=== PATIENT | male | born 1940 | race Caucasian/White ===

== ENCOUNTER 2019-02-03 05:41 | Inpatient (IN) | payer OTHER, BC ==
[2019-01-27 10:37] LABS: ABSOLUTE NEUTROPHILS 4.9 thou/uL (1.4-8.2); EOSINOPHILS 3.5 % (0.0-3.0); HEMATOCRIT 45.8 % (42.0-52.0); HEMOGLOBIN 15.3 gm/dL (14.0-18.0); LYMPHOCYTES 20.6 % (24.0-44.0); MCH 30.5 pg (26.0-34.0); MCHC 33.4 g/dL (28.0-37.0); MCV 91.3 fL (80.0-100.0); MONOCYTES 8.7 % (1.0-8.0); PLATELET COUNT 280 thou/uL (150-400); POLYS 66.2 % (36.0-66.0); RBC 5.01 mil/uL (4.50-6.00); WBC 7.4 thou/uL (4.0-11.0)
[2019-01-27 10:38] LABS: URINE BILIRUBIN NEGATIVE (Negative); URINE BLOOD NEGATIVE (Negative); URINE CLARITY CLEAR; URINE COLOR YELLOW; URINE GLUCOSE-RANDOM* NEGATIVE (Negative); URINE KETONES NEGATIVE (Negative); URINE LEUKOCYTES TRACE (Negative); URINE NITRITE NEGATIVE (Negative); URINE PROTEIN (DIPSTICK) NEGATIVE (Negative); URINE UROBILINOGEN 0.2 E.U./dl (0.2-1.0)
[2019-01-27 10:49] LABS: APTT 26.6 Seconds (24.5-32.8); PROTIME 10.9 Seconds (9.3-11.4)
[2019-01-27 10:52] LABS: ALBUMIN 3.9 g/dL (3.4-5.0); CALCIUM 9.1 mg/dL (8.5-10.1); CREATININE 1.1 mg/dL (0.7-1.3); POTASSIUM 4.2 mmol/L (3.5-5.1); TOTAL BILIRUBIN 0.8 mg/dL (<0.1-1.0); TOTAL PROTEIN 6.5 g/dL (6.4-8.2)
--- NOTE | 2019-01-27 13:59 | EKG ---
[place] [address] [place] [address] ELECTROCARDIOGRAM REPORT Name: SRIKANTH MCCARTHY Room #: [facility]#: [id number] Admission: Attend Phys: Han Bird MD Discharge: Date of : 40 Report #: [id number] THIS REPORT FOR: //name// [facility] Test Date: 2019-01-27 Test Time: 10:37:26 Pat Name: SRIKANTH MCCARTHY Department: Room: Gender: Internal Affairs Investigator: marissa : 1940 Requested By: Han Bird Order Number: [id number] MD: Rickey Greer Measurements Intervals [place] Rate: 81 P: 50 WV: 237 QRS: 33 QRSD: 167 T: -3 QT: 388 QTc: 451 Interpretive Statements Sinus rhythm Supraventricular bigeminy Prolonged WV interval Right bundle branch block No previous ECG available for comparison Electronically Signed On 01-27-2019 13:59:12 CDT by Rickey Greer [email or web address] <ELECTRONICALLY SIGNED> By: Rickey Greer MD 01/27/19 1359 1037 Jessica Greer MD /IRMA
[2019-02-03] VITALS (17 sets, daily range): BP systolic 103–141; BP diastolic 62–83
[~2019-02-03] VITALS: Ht 182.9 cm; Wt 88.7 kg
[~2019-02-03 05:41] MED LIST: ASA81BEC PO; LIPITOR 20 MG T20 M1 PO; MICROZIDE12.5 MG PO; OMEPRAZOLE 20 M20 M1 PO
[2019-02-03 13:30] LABS: ABSOLUTE NEUTROPHILS 12.6 thou/uL (1.4-8.2); BASOPHILS 0.2 % (0.0-2.0); HEMATOCRIT 44.1 % (42.0-52.0); HEMOGLOBIN 14.3 gm/dL (14.0-18.0); LYMPHOCYTES 3.8 % (24.0-44.0); MCH 29.9 pg (26.0-34.0); MCHC 32.4 g/dL (28.0-37.0); MCV 92.1 fL (80.0-100.0); MONOCYTES 3.5 % (1.0-8.0); PLATELET COUNT 256 thou/uL (150-400); POLYS 92.5 % (36.0-66.0); RBC 4.79 mil/uL (4.50-6.00); RDW 15.1 % (10.5-14.5); WBC 13.6 thou/uL (4.0-11.0)
[2019-02-03 13:38] LABS: CALCIUM 7.6 mg/dL (8.5-10.1); CREATININE 1.1 mg/dL (0.7-1.3); POTASSIUM 4.1 mmol/L (3.5-5.1)
--- NOTE | 2019-02-03 15:35 | NUR ---
PATIENT IN ICU FROM PACU AT 1415, DROWSY BUT EASILY AROUSABLE AND IS ORIENTED. HEALTH PROGRAM MANAGER FENTANYL INFUSING WITH BASAL. VITALS STABLE. A-LINE RT RADIAL, CHEST TUBE LEFT LATERAL CHEST TO -20SUCTION. DRESSING INTACT WITH AMIE VAC ON LEFT LATERAL CHEST. SPOUSE UPDATED AND ICU GUIDELINES AND PRIVACY CODE PROVIDED.
[2019-02-03 23:34] LABS: TSH 2.429 uIU/mL (0.358-3.740)
[2019-02-04] VITALS (23 sets, daily range): BP systolic 98–140; BP diastolic 53–83
[2019-02-04 05:15] LABS: HEMATOCRIT 42.8 % (42.0-52.0); HEMOGLOBIN 14.1 gm/dL (14.0-18.0); MCH 30.3 pg (26.0-34.0); MCHC 32.9 g/dL (28.0-37.0); RBC 4.66 mil/uL (4.50-6.00); RDW 15.3 % (10.5-14.5)
[2019-02-04 05:27] LABS: CALCIUM 8.1 mg/dL (8.5-10.1); POTASSIUM 4.2 mmol/L (3.5-5.1)
--- NOTE | 2019-02-04 15:24 | NUR ---
CM ASSESSMENT: CASE OPENED FOR DC PLANNING. CLINICAL INFO REVIEWED. PT WITH HX OF LEFT PLEURAL EFFUSION/EMPHYEMA AND NOW POD #1 LEFT THORACOTOMY WITH DECORTICATION. PT LIVES WITH SPOUSE IN HOUSE. BOTH ARE RETIRED. PT INDEPENDENT WITH ADLS, DRIVES SHARES IADLS WITH SPOUSE. HAS PCP AND PRESCRIPTION COVERAGE. THERAPY EVALS PENDING AND WILL FOLLOW TO ASSIST WITH COORDINATION OF ANY DC NEEDS. CURRENTLY HAD CHEST TUBE TO SUCTION.
--- NOTE | 2019-02-04 17:06 | PATH ---
[facility] [address] [address] PATHOLOGY RPT PROCEDURE Name: SRIKANTH MCCARTHY Ran Room #: 238-P [facility] IN M.R.#: [id number] Admission: 02/03/19 Date of : 40 Discharge: Report #: [id number] Path Case #: [id number] [facility] Accession Number: [id number] . 01 Material submitted: . lung - TISSUE LEFT PLEURAL PEEL. Modifiers: left . 01 Clinical history: . Pleural effusion . 02 Diagnosis: Pleural peel, left, decortication: - Moderate acute and chronic inflammation associated with congestion, focal giant cell reaction as well as reactive mesothelial hyperplasia. (IUV:dryland farmer; 02/04/2019) MBR 02/04/2019 1451 Local . 02 Electronically signed: . Sofia Epperson MD, Pathologist NPI- [id number] . 01 Gross description: . The specimen is received in formalin, labeled "Janessa, Srikanth, left pleural peel" and consists of multiple thin segments of pink-purple tissue measuring 4.5 x 3.4 x 0.5 cm in aggregate. The specimen is entirely submitted in A1-A2. (SDY; 02/03/2019) SYU/SYU 02/04/2019 1450 Local . 02 Pathologist provided ICD-10: R09.1 . 02 CPT . 203610 Specimen Comment: A courtesy copy of this report has been sent to [phone], [facility]-808 Specimen Comment: [id number] Specimen Comment: Report sent to / DR KING Performed at: [address], [place] [id number] MD Sin Fountain MD Phone: [phone] Performed at: [address] [id number] MD Sofia Epperson MD Phone: [phone]
[2019-02-04 23:07] LABS: GLYCOHEMOGLOBIN (HGB A1C) 5.6 % (4.8-5.6)
[2019-02-05] VITALS (29 sets, daily range): BP systolic 30–154; BP diastolic 15–84
--- NOTE | 2019-02-05 04:19 | NUR ---
ASSUMED CARE OF PATIENT AT 1900. VSS, AFEBRILE. UP TO CHAIR UNTIL READY FOR BED. STEADY ON FEET, RATES PAIN BETWEEN 1-2. AT 0400 BP DOWN TO 91/61, DR MALLORY NOTIFIED. TELEPHONE ORDER TO DC FOOD SERVICES DIRECTOR PUMP. PATIENT UPDATED ABOUT FOOD SERVICES DIRECTOR BEING STOPPED AND EDUCATED ON ALTERNATIVES SUCH HYDROCODONE. AGREEABLE TO PAIN MANAGEMENT OPTIONS. RESTING COMFORTABLY. WILL CONTINUE TO MONITOR.
--- NOTE | 2019-02-05 15:34 | NUR ---
PT AMBULATED 350 FT SBA NO DEVICE AND THERAPY RECOMMENDATION IS HOME SELF CARE AT [place]. CM TO FOLLOW.
[2019-02-05] MEDS ORDERED: FLOMAX0.4 MG PO (18:58)
--- NOTE | 2019-02-05 23:35 | NUR ---
REPORT GIVEN TO NANCI KENNY AT 2200. PT. TRANSFERRED TO CCU WITH ALL BELONGINGS. NO COMPLIACTIONS AT THIS TIME.
[2019-02-06 05:05] LABS: ABSOLUTE NEUTROPHILS 6.5 thou/uL (1.4-8.2); BASOPHILS 0.3 % (0.0-2.0); EOSINOPHILS 7.4 % (0.0-3.0); HEMATOCRIT 42.7 % (42.0-52.0); HEMOGLOBIN 13.9 gm/dL (14.0-18.0); LYMPHOCYTES 9.4 % (24.0-44.0); MCH 30.3 pg (26.0-34.0); MCHC 32.5 g/dL (28.0-37.0); MCV 93.4 fL (80.0-100.0); MONOCYTES 9.7 % (1.0-8.0); PLATELET COUNT 250 thou/uL (150-400); POLYS 73.2 % (36.0-66.0); RBC 4.57 mil/uL (4.50-6.00); RDW 15.4 % (10.5-14.5); WBC 8.9 thou/uL (4.0-11.0)
[2019-02-06 05:27] VITALS: BP 137/77
[2019-02-06 05:27] LABS: CALCIUM 8.4 mg/dL (8.5-10.1); CREATININE 0.9 mg/dL (0.7-1.3); MAGNESIUM 1.9 mg/dL (1.8-2.4); POTASSIUM 3.6 mmol/L (3.5-5.1)
--- NOTE | 2019-02-06 05:27 | NUR ---
PT ARRIVED UNIT FROM ICU AT ABOUT 2200. PT A/OX4, VITAL SIGNS STABLE, ASSESSMENT CHARTED. NO COMPLAINTS OF PAIN, NO COMPLAINTS OF SOB. PT CALLS APPROPRIATELY. PT EDUCATED ON FALL PREVENTION. CALLS APPROPRIATELY. PT RESTED WELL FOR THE REST OF THE NIGHT. PROGRESSING TOWARD PLAN OF CARE. WILL CONTINUE TO MONITOR.
[2019-02-06 08:30] VITALS: BP 131/75
[2019-02-06] MEDS ORDERED: HYDROCODON-ACE1 EAC7 PO (10:16)
[2019-02-06 12:18] VITALS: BP 131/75
[2019-02-06 12:22] VITALS: BP 131/75
--- NOTE | 2019-02-10 13:07 | O ---
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 OPERATION: Bronchoscopy, left video-assisted thoracoscopy, left thoracotomy with decortication. SURGEON: Han Bird MD ANESTHESIA: General. INDICATIONS: The patient is a 78-year-old with a history of pneumonia. The patient and state that this was untreated for several months, and as a result, the patient developed a chronic left pleural effusion. This has been drained several times, but the left lower lobe principally is trapped. FINDINGS AND TECHNIQUE: After general anesthesia was established, a flexible diagnostic bronchoscopy was performed. No specific endobronchial lesions were noted. There was some crowding in the basilar bronchi on the left. The patient was positioned with left side up after a double-lumen endotracheal tube was placed. Exposure was obtained through video-assisted thoracoscopy ports. We drained approximately 550 mL of fluid initially and observed that the left lower lobe was trapped with a fine fibrous covering that I thought would not yield to the video-assisted approach. Therefore, exposure was brought into a posterolateral thoracotomy. Chest was entered in the 5th interspace using a rib sparing, nerve sparing approach. The fibrous envelope trapping the lower lobe was dissected free with a combination of sharp and blunt dissection. The entire lower lobe was examined and all envelope was removed as possible. We also developed the fissure between the upper and lower lobes and decorticated the involved areas of the left upper lobe principally the lingula. 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 All of the pathologic material was submitted for permanent pathology. When we had finished decorticating to the best of our ability, chest tubes were placed and the chest was closed, preserving the rib sparing, nerve sparing approach. The muscle and fascial layers were closed in layers and the patient was taken to the recovery area in good condition having tolerated the procedure well. All counts were reported as correct. <ELECTRONICALLY SIGNED> By: Han Bird MD 02/10/19 1307 1316 1335 Han Bird MD /rahul
== END 2019-02-06 13:29 | disposition home or self-care (01) | DRG 163 ==
LOC: ICU 05:41 → TBA 05:41 → PRE 08:17 → ICU 14:02 → 2N 02-05 22:56 → ENTRNSPT 02-06 12:55 → EDTRNSPTSTS 02-06 13:01 → 2N 02-06 13:29
PROVIDERS: Hospitalist; Internal Medicine; Physician Assistant; ADMIT Surgery Vascular Surgery
DX: J90 Pleural effusion, not elsewhere classified (principal); J86.9 Pyothorax without fistula; C85.90 Non-Hodgkin lymphoma, unspecified, unspecified site; N40.0 Benign prostatic hyperplasia without lower urinary tract symptoms; E78.5 Hyperlipidemia, unspecified; R73.9 Hyperglycemia, unspecified; K21.9 Gastro-esophageal reflux disease without esophagitis; Z79.82 Long term (current) use of aspirin; Z79.899 Other long term (current) drug therapy; Z85.038 Personal history of other malignant neoplasm of large intestine; Z92.21 Personal history of antineoplastic chemotherapy; Z87.891 Personal history of nicotine dependence; Z90.49 Acquired absence of other specified parts of digestive tract; Z51.89 Encounter for other specified aftercare
CPT/HCPCS: 10078; 10081; 47405; 50010; 50101; 50386; 50417; 50455; 50497; 51301; 52265; 54118; 56524; 56525; 56526; 56527; 56528; 57116; 62110; 62900; 70005